=== PATIENT | female | born 1945 | race Caucasian/White ===

== ENCOUNTER 2022-03-03 15:13 | Outpatient (CLI) | payer MEDICARE | END 2022-03-03 15:14 | disposition home or self-care (01) | LOC: CSHMAMMO 15:13 | PROVIDERS: ATTEND Internal Medicine | DX: Z12.31 Encounter for screening mammogram for malignant neoplasm of breast (principal) | CPT/HCPCS: 77063; 77067 ==

== ENCOUNTER 2022-05-29 04:29 | Emergency (ER) | payer MEDICARE ==
[2022-05-29] MEDS ORDERED: methylPREDNISolone Sod Succ/PF 125 MG/2 ML VIAL ONE (05:14)
== END 2022-05-29 05:46 | disposition home or self-care (01) ==
LOC: CSHERS 04:29
DX: M54.50 Low back pain, unspecified (principal); E78.00 Pure hypercholesterolemia, unspecified; I10 Essential (primary) hypertension; Z79.899 Other long term (current) drug therapy
CPT/HCPCS: 72100; 96372; J2930

== ENCOUNTER 2024-07-11 08:02 | Outpatient (CLI) | payer MEDICARE | END 2024-07-11 08:03 | disposition home or self-care (01) | LOC: CSHMRI 08:02 | PROVIDERS: ATTEND Nurse Practitioner Family | DX: S22.080A Wedge compression fracture of T11-T12 vertebra, initial encounter for closed fracture (principal); S22.080D Wedge compression fracture of T11-T12 vertebra, subsequent encounter for fracture with routine healing | CPT/HCPCS: 72146 ==